=== PATIENT | male | born 1975 | race American Indian/Alaskan Native ===

== ENCOUNTER 2016-09-17 11:01 | Inpatient (IN) | payer MEDICAID ==
[~2016-09-17] VITALS: Ht 180.3 cm; Wt 126.3 kg
[~2016-09-17 11:01] MED LIST: CARI-277; NOR10T; ZOLP-158
[2016-09-17 12:00] LABS: Basophils # (auto) 0 uL; Basophils % (auto) 0.4 % (0.0-2.0); CONDITION Y; Eosinophils # (auto) 0.1 uL; Hematocrit 47.2 % (41.0-53.0); Hemoglobin 16.2 g/dL (13.5-17.5); Lymphocytes # (auto) 2.2 uL; Lymphocytes % (auto) 35.3 % (10.0-50.0); Mean Corpuscular Hemoglobin 31.7 pg (28.0-32.0); Mean Corpuscular Hgb Conc. 34.3 g/dL (32.0-36.0); Mean Corpuscular Volume 92.5 fL (80.0-100.0); Monocytes # (auto) 0.5 uL; Monocytes % (auto) 8.2 % (0.0-12.0); Neutrophils # (auto) 3.4 uL; Neutrophils % (auto) 54.1 % (37.0-80.0); Platelet Count (auto) 282 10^3/uL (140-450); Red Cell Distribution Width 14.1 % (11.6-16.0); White Blood Cell 6.2 10^3/uL (4.4-10.8)
[2016-09-17 12:25] LABS: Albumin 4.3 g/dL (3.4-5.0); Bilirubin, Total 0.9 mg/dL (0.2-1.0); Calcium 9.8 mg/dL (8.5-10.1); Potassium 3.9 mmol/L (3.5-5.1); Total Protein 8.5 g/dL (6.4-8.2)
[2016-09-17] MEDS ORDERED: SODIUM CHLORIDE 0.9% 1,000 ML IVB ONE (13:54)
[2016-09-17 14:24] LABS: Magnesium 2.3 mg/dL (1.6-2.6)
[2016-09-17] MEDS ORDERED: ONDANSETRON HCL 4 MG/2 ML VIAL IV ONE (15:15)
[2016-09-17] MEDS ORDERED: MORPHINE SULF INJ 2 MG/ML SYRINGE 1ML IV ONE (15:15)
[2016-09-17] MEDS ORDERED: cefTRIAXone 1GM/50ML D5W 50 ML IV ONE ×2 (15:15→16:45)
[2016-09-17] MEDS ORDERED: metroNIDAZOLE 500MG/100ML 100 ML IV ONE (15:15)
[2016-09-17 16:20] LABS: Urine Bilirubin Negative (Negative); Urine Blood Negative /uL (Negative); Urine Color Yellow (Yellow); Urine Glucose Normal (Normal); Urine Ketone Negative (Negative); Urine Mucus FEW (None Seen); Urine Nitrite Negative (Negative); Urine RBC 1 /hpf (0 - 3); Urine Squamous Epithelial Cell FEW /hpf (<5); Urine Urobilinogen Normal (Negative); Urine pH 5.5 (5.0-8.0)
[2016-09-17] MEDS ORDERED: CYCLOBENZAPRINE HCL 10 MG TAB PO PRN (16:45)
[2016-09-17] MEDS ORDERED: MORPHINE SULF INJ 2 MG/ML SYRINGE 1ML IV PRN (16:45)
[2016-09-17] MEDS ORDERED: ALPRAZolam 0.5 MG TAB PO PRN (16:45)
[2016-09-17] MEDS: SODIUM CHLORIDE 0.9% 1,000 ML IV SCH (17:15)
[2016-09-17] MEDS: PANTOPRAZOLE 40 MG TAB PO SCH (17:15)
[2016-09-17] MEDS: HYDROmorphone HCL 2 MG/ML VL IV PRN (19:10)
[2016-09-17] MEDS: ALPRAZolam 0.5 MG TAB PO PRN (20:28)
[2016-09-17] MEDS ORDERED: ALPRAZolam 0.5 MG TAB PO ONE (20:30)
[2016-09-17] MEDS: metroNIDAZOLE 500MG/100ML 100 ML IV SCH (22:30)
[2016-09-17] MEDS: OXYCODONE W/ ACETAMINOPHEN 5/325MG TABLET PO PRN (23:24)
[2016-09-17 23:30] VITALS: BP 121/63
[2016-09-18] MEDS: HYDROmorphone HCL 2 MG/ML VL IV PRN ×4 (01:00→20:26)
[2016-09-18 04:53] VITALS: BP 133/86
[2016-09-18] MEDS ORDERED: ALPR1TAB2 PO (05:19)
[2016-09-18] MEDS ORDERED: PERCOT PO (05:20)
[2016-09-18] MEDS: SODIUM CHLORIDE 0.9% 1,000 ML IV SCH ×2 (06:05→19:25)
[2016-09-18] MEDS: metroNIDAZOLE 500MG/100ML 100 ML IV SCH ×2 (06:05→16:24)
[2016-09-18] MEDS: OXYCODONE W/ ACETAMINOPHEN 5/325MG TABLET PO PRN ×3 (06:14→19:00)
[2016-09-18] MEDS: ALPRAZolam 0.5 MG TAB PO PRN ×2 (06:18→16:24)
[2016-09-18 07:21] LABS: Basophils # (auto) 0 uL; Basophils % (auto) 0.6 % (0.0-2.0); CONDITION Y; Eosinophils # (auto) 0.2 uL; Hematocrit 41.5 % (41.0-53.0); Hemoglobin 13.9 g/dL (13.5-17.5); Lymphocytes # (auto) 2.3 uL; Lymphocytes % (auto) 40.4 % (10.0-50.0); Mean Corpuscular Hemoglobin 31.3 pg (28.0-32.0); Mean Corpuscular Hgb Conc. 33.4 g/dL (32.0-36.0); Mean Corpuscular Volume 93.5 fL (80.0-100.0); Monocytes # (auto) 0.6 uL; Monocytes % (auto) 10.5 % (0.0-12.0); Neutrophils # (auto) 2.6 uL; Neutrophils % (auto) 45.5 % (37.0-80.0); Platelet Count (auto) 243 10^3/uL (140-450); Red Cell Distribution Width 14.1 % (11.6-16.0); White Blood Cell 5.6 10^3/uL (4.4-10.8)
[2016-09-18 07:59] LABS: BUN/Creatinine Ratio 10.3; Calcium 8.9 mg/dL (8.5-10.1)
[2016-09-18 09:00] VITALS: BP 122/66
[2016-09-18] MEDS ORDERED: cefTRIAXone 1GM/50ML D5W 50 ML IV SCH (09:00)
[2016-09-18] MEDS: PANTOPRAZOLE 40 MG TAB PO SCH (10:00)
[2016-09-18 13:00] VITALS: BP 128/75
[2016-09-18 17:00] VITALS: BP 127/91
[2016-09-18] MEDS ORDERED: AMOXICILLIN/CLAVUL 875 MG TAB PO ONE (17:15)
[2016-09-18 20:34] VITALS: BP 126/77
== END 2016-09-18 21:46 | disposition home or self-care (01) | DRG 244 ==
LOC: ER 11:01 → OVERFLOW 11:02 → CENTRAL 23:27
PROVIDERS: ADMIT Internal Medicine; ATTEND Internal Medicine
DX: K57.92 Diverticulitis of intestine, part unspecified, without perforation or abscess without bleeding (principal); I10 Essential (primary) hypertension; F41.9 Anxiety disorder, unspecified; K21.9 Gastro-esophageal reflux disease without esophagitis; Z82.49 Family history of ischemic heart disease and other diseases of the circulatory system; Z83.3 Family history of diabetes mellitus; Z80.9 Family history of malignant neoplasm, unspecified; Z71.89 Other specified counseling
CPT/HCPCS: 36415; 71010; 74176; 80048; 80053; 81001; 82150; 83690; 83735; 85025; 87493; 96361; 96365; 96368; 96375; J0696; J2405; J3490